=== PATIENT | male | born 1935 | race Caucasian/White ===

== ENCOUNTER → 2016-09-14 | Outpatient (CLI) | payer MEDICARE, OTHER ==
[~2016-09-14] MED LIST: AMOXICILLIN500 MG PO; ASPIRIN80 MG PO; ASPIRIN81 M1 PO; ATOXIMETIN-B1 CAP PO; AVODART0.5 M1 PO; AVODART0.5 MG PO; CEFADROXIL500 M1 PO; CIPROFLOXACIN500 MG PO; CITRACAL LIQUI500 MG PO; CRESTOR20 MG PO; EPA-CON500 MG PO; FLOMAX0.4 MG PO; FLONASE 0.05% 121 EA NAS; LISINOPRIL10 MG PO; MAXZIDE 25 MG-31 TAB PO; MOTRIN100 M1 PO; NEXIUM40 MG PO; PYRIDIUM200 MG PO; TRIAMTERENE & H1 CA1 PO; ULTRAM50 MG PO; [UNRECOGNIZED DRUG - CODE] PO; [UNRECOGNIZED DRUG - REMARK]
[2016-09-14 10:48] LABS: BILIRUBIN NEGATIVE (NEGATIVE); BLOOD NEGATIVE (NEGATIVE); CLARITY CLEAR (CLEAR); COLOR YELLOW (YELLOW); GLUCOSE NEGATIVE (NEGATIVE); KETONE NEGATIVE (NEGATIVE); LEUKO ESTERASE NEGATIVE (NEGATIVE); NITRITE NEGATIVE (NEGATIVE); PROTEIN NEGATIVE (NEGATIVE); SPECIFIC GRAVITY <= 1.005 (1.005-1.030); UROBILINOGEN 0.2 E.U./dl (0.2-1.0)
[2016-09-14 10:55] LABS: BASO % 0.3 % (0.0-1.0); EOS # 0.4 10*3/uL (0.0-0.4); EOS % 10.2 % (1.0-4.0); HEMATOCRIT 41.3 % (42.0-52.0); LYMPH # 0.7 10*3/uL (1.3-4.4); LYMPH % 16.6 % (27.0-41.0); MEAN CELL VOLUME 97.2 fl (80.0-94.0); MEAN CORPUSCULAR HGB 32.9 pg (27.0-31.0); MEAN CORPUSCULAR HGB CONC 33.9 g/dl (33.0-37.0); MEAN PLATELET VOLUME 9.2 fl (9.6-12.3); MONO # 0.3 10*3/uL (0.1-1.0); MONO % 8.7 % (3.0-9.0); NEUT # 2.5 10*3/uL (2.3-7.9); NEUT % 64.2 % (47.0-73.0); PLATELET COUNT AUTOMATED 121 10*3/uL (130-400); RED BLOOD COUNT 4.25 10*6/uL (4.50-5.90); RED CELL DISTRI WIDTH 12.8 % (0-14.5); WHITE BLOOD COUNT 3.9 10*3/uL (4.8-10.8)
[2016-09-14 11:12] LABS: EPITHELIAL CELLS 0-2; URINE REFLEX COMMENT NO (NO)
[2016-09-14 11:16] LABS: ALBUMIN 3.5 gm/dl (3.1-4.5); ALKALINE PHOSPHATASE 75 U/L (45-117); BILIRUBIN, TOTAL 0.8 mg/dl (0.2-1.0); BUN 15 mg/dl (7-24); CARBON DIOXIDE 24 mmol/L (21-32); CHLORIDE 107 mmol/L (98-107); CHOLESTEROL 107 mg/dL (<200); CPK 271 U/L (39-308); EST GLOM FILT AFRICAN AMERICAN > 60 ml/min; GLUCOSE 124 mg/dL (65-99); HDL CHOLESTEROL 47 mg/dl (40-60); LDL CHOLESTEROL 45 mg/dL (9-159); POTASSIUM 3.9 mmol/L (3.5-5.1); SGOT/AST 18 IU/L (3-35); SGPT/ALT 25 U/L (12-78); SODIUM 139 mmol/L (136-145); TOTAL PROTEIN 6.7 gm/dL (6.4-8.2); TRIGLYCERIDES 76 mg/dl (<150); VLDL CHOLESTEROL 15 mg/dL (6-40)
== END | disposition home or self-care (01) ==
LOC: LAB 10:14
PROVIDERS: Family Medicine
DX: J98.6 Disorders of diaphragm (principal); E78.00 Pure hypercholesterolemia, unspecified; R60.0 Localized edema

== ENCOUNTER → 2017-05-20 | Outpatient (CLI) | payer MEDICARE, OTHER ==
--- NOTE | ~2017-05-20 | HM ---
[place], [place] HOLTER MONITOR REPORT [id number] UNIT #: [id number] ROOM: DOCTOR: CLARITA LEVIN MD BIRTHDATE: [birth year] DOS: 05/20/2017 A 48-HOUR HOLTER MONITOR Study was done between May 20 and 05/22/2017. The recording was analyzed, interpreted and dictated on 05/22/2017. REFERRED BY: Dr. Kamara of [facility]. INDICATIONS: Sinoatrial node dysfunction. FINDINGS: A 24-hour Holter recording was obtained. Average heart rate was 47 and heart rate in sinus rhythm varied from 31 to 111 beats per minute. The patient did have periods of sinus rhythm with marked sinus bradycardia. Sinus arrhythmia was seen. The longest pause was 2.4 seconds. No SVT was recorded. The patient did have frequent ventricular beats. He did have periods of accelerated idioventricular rhythm recorded along with short runs of nonsustained ventricular tachycardia. The fastest rate in V-tach was 107 beats per minute and the longest duration was 16 beats. The patient's slowest heart rates occurred at hours normally associated with sleeping. Ventricular tachycardia occurred at 3:37 a.m. as well as 11:22 p.m. The patient did return a diary, which showed that he was active, walking on a treadmill, doing leg exercises, etc. He listed no symptoms. IMPRESSION: Abnormal Holter recording, showing relative bradycardia. The patient's average heart rate was 47. No prolonged pauses were seen. The patient did have sinus rhythm, sinus arrhythmia, as well as ventricular arrhythmias with accelerated idioventricular rhythm and nonsustained ventricular tachycardia, but no symptoms. CLARITA LEVIN MD CM:HOLTER:HOLTER MONITOR REPORT [id number] CLARITA LEVIN MD
== END | disposition home or self-care (01) ==
LOC: CARD 05-19 02:46
DX: R00.1 Bradycardia, unspecified (principal)